=== PATIENT | female | born 1960 | race Two or more races ===

== ENCOUNTER 2019-01-01 02:53 | Emergency (ER) | payer OTHER ==
[~2019-01-01] VITALS: Ht 167.6 cm; Wt 89.8 kg
[~2019-01-01 02:53] MED LIST: GAVISCON500 MG; PRILOSEC2.5 MG; PRILOSEC20 MG; TENORMIN100 MG; ULTRAM50 MG PO
[2019-01-01] MEDS ORDERED: PRILOSEC10 MG (03:09)
[2019-01-01] MEDS ORDERED: FLONASE16 GM NASAL (04:56)
[2019-01-01] MEDS ORDERED: MOBIC15 MG PO (04:56)
[2019-01-01] MEDS ORDERED: AMOX-CLAV 875-1 EACH PO ×2 (04:56→04:57)
== END 2019-01-01 14:30 ==
LOC: ER 02:53
DX: J32.8 Other chronic sinusitis (principal); R51 Headache